=== PATIENT | male | born 1995 | race Caucasian/White ===

== ENCOUNTER 2016-05-30 19:39 | Emergency (ER) | payer OTHER ==
[~2016-05-30] VITALS: Ht 185.4 cm; Wt 78.1 kg
[2016-05-30 19:42] VITALS: TEMP 36.4; Ht 185.4 cm; Wt 78.1 kg
--- NOTE | 2016-05-30 20:24 | DIAGNOSTIC IMAGING REPORT ---
RIGHT SHOULDER 2 VIEWS CLINICAL HISTORY: Right shoulder dislocation status post reduction. FINDINGS: 2 views of the right shoulder are obtained. No prior studies are available for comparison at the time of dictation. The skeletal structures are well mineralized. No fracture or dislocation is seen. The glenohumeral and acromioclavicular joints are in anatomic alignment. The overlying soft tissues are within normal limits. Imaged right lung parenchyma appears clear. IMPRESSION: No fracture or dislocation is seen in the right shoulder at the time of examination. Electronically signed by: Damaso Jarvis M.D. 05/30/2016 8:23 PM Dictated Date/Time: 05/30/2016 8:22 PM
[2016-05-30 21:06] VITALS: BP 108/60; PULSE 82; O2SAT 95
--- NOTE | 2016-05-31 00:22 | EMERGENCY ROOM VISIT NOTE ---
History First contact with patient: 19:42 Chief Complaint: SHOULDER DISLOCATION Stated Complaint: RT SHOULDER DISLOCATION History of Present Illness The patient is a 20 year old male who presents to the Emergency Room with complaints of a right shoulder dislocation. The patient reports that he was playing racquetball when this happened. The patient does report a prior history of shoulder dislocation naproxen for years ago. He was treated with physical therapy as prescribed by his PCP. The patient did not have any orthopedic follow-up since that injury, and has not had any complaint of chronic shoulder pain, weakness or other significant complications. He rates his discomfort an 8 out of 10. The patient is [id number]. Review of Systems 10 system review was performed and was negative except for pertinent positives and negatives as indicated in history of present illness Past Medical/Surgical History Medical Problems: (1) Recurrent dislocation, right shoulder Surgical Problems: (1) No history of previous surgery Family History Unremarkable Social History Smoking Status: Never Smoker Alcohol Use: occasionally Marital Status: single Occupation Status: [employer] Current/Historical Medications No Active Prescriptions or Reported Meds Allergies Coded Allergies: No Known Allergies (Unverified , 05/30/16) Physical Exam Vital Signs Date Time Temp Pulse Resp B/P Pulse Ox O2 Delivery O2 Flow Rate FiO2 05/30/16 21:06 82 18 108/60 95 05/30/16 19:42 36.4 84 20 119/71 99 Room Air Physical Exam CONSTITUTIONAL: Healthy and well nourished. Alert and oriented X 3 with positive affect. Patient does not appear in any acute distress. HEENT: Normocephalic, atraumatic. Pupils equal, round and reactive. NECK: Full active range of motion without discomfort. MUSCULOSKELETAL: Examination shows a for deformity of the right shoulder. The patient has a prominent anterior shoulder with sulcus posteriorly. Any attempted range of motion worsens the patient's discomfort. Distal pulses are intact. INTEGUMENTARY: No rash or other significant dermatologic conditions noted. NEUROLOGIC: Right deltoid sensation is intact. Medical Decision & Procedures ER Provider Diagnostic Interpretation: My interpretation of post reduction x-rays does not show any acute fractures or other chronic lesions of the glenoid or humeral head. Radiologist report is as follows: RIGHT SHOULDER 2 VIEWS CLINICAL HISTORY: Right shoulder dislocation status post reduction. FINDINGS: 2 views of the right shoulder are obtained. No prior studies are available for comparison at the time of dictation. The skeletal structures are well mineralized. No fracture or dislocation is seen. The glenohumeral and acromioclavicular joints are in anatomic alignment. The overlying soft tissues are within normal limits. Imaged right lung parenchyma appears clear. IMPRESSION: No fracture or dislocation is seen in the right shoulder at the time of examination. Procedure Shoulder reduction was performed WITHOUT sedation. The patient was placed in a prone position with his right arm off the side of the bed, with the humerus perpendicular to the floor and forearm parallel to the floor. With verbal coaching, the shoulder was successfully reduced. ED Course Patient history and physical exam were performed. Nurse's notes were reviewed. The patient consented to shoulder reduction without analgesics or sedation. The shoulder was easily reduced. Because the patient has had a recurrent dislocation, and has not had any prior shoulder x-rays, I did elect to perform x -rays. No chronic changes or fractures are noted. A sling was applied. The patient was encouraged to intermittently apply ice to the shoulder. Ibuprofen and Tylenol in alternating fashion as needed for additional pain relief. The patient was provided contact information for [facility] for further reevaluation and management. The patient was happy with plan of care, voiced understanding of all discharge instructions, and rated his pain a 3 out of 10 at the time of discharge. Medical Decision Impression Primary Impression: Recurrent dislocation, right shoulder Departure Information Prescriptions No Active Prescriptions or Reported Meds Referrals [facility] (PCP) Patient Instructions My [facility]
== END 2016-05-30 21:06 | disposition home or self-care (01) ==
LOC: C.EDB 19:41 → C.EDD 21:06
DX: M24.411 Recurrent dislocation, right shoulder (principal)